=== PATIENT | male | born 1985 | race Caucasian/White ===

== ENCOUNTER 2022-02-25 01:37 | Emergency (ER) | payer SELFPAY ==
[~2022-02-25] VITALS: Ht 177.8 cm; Wt 74.8 kg
--- NOTE | 2022-02-25 01:55 | NUR ---
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 PT A/OX3. TOLERATING R/A WELL WITH NO SOB. PT IS ATTACHED TO POX AND MONITOR, SAFETY MEASURES TAKEN. SITTER AT BEDSIDE.
--- NOTE | 2022-02-25 02:01 | NUR ---
[employer] AT PT'S BEDSIDE
--- NOTE | 2022-02-25 02:13 | NUR ---
RAC #18G S/L BLOOD COLLECTED AND SENT TO LAB. 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
[2022-02-25 02:50] LABS: BASOPHILS % (AUTO) 0.4 % (0.0-2.0); EOSINOPHILS % (AUTO) 2.1 % (0.0-6.0); HEMATOCRIT 48 % (39-51); HEMOGLOBIN 16.1 g/dL (13.5-17.5); LYMPHOCYTES % (AUTO) 32.5 % (20.0-44.0); MEAN CORPUSCULAR HGB CONC 34 g/dl (31.0-36.0); MEAN CORPUSCULAR VOLUME 92 fL (80-96); MONOCYTES # (AUTO) 0.5 K/uL (0.1-1.30); MONOCYTES % (AUTO) 8.6 % (2.0-12.0); NEUTROPHILS # (AUTO) 3.4 K/uL (1.8-8.9); NEUTROPHILS % (AUTO) 56.4 % (43.0-81.0); PLATELET COUNT (AUTO) 259 K/uL (150-450); RED BLOOD CELL COUNT(AUTO) 5.19 MIL/uL (4.5-6.0)
[2022-02-25 03:09] LABS: ALBUMIN 3.5 g/dL (3.4-5.0); BILIRUBIN,DIRECT 0.2 mg/dL (0.0-0.2); BILIRUBIN,TOTAL 0.5 mg/dL (0.2-1.0); CALCIUM, SERUM 8.7 mg/dL (8.5-10.1); CREATININE 1.1 mg/dL (0.6-1.3); POTASSIUM 3.9 mmol/L (3.5-5.1); TOTAL PROTEIN, SERUM 8.4 g/dL (6.4-8.2)
--- NOTE | 2022-02-25 04:25 | NUR ---
PT SATTING 87% ON R/A; RESP EVEN AND NON LABORED. PUT PT ON O2 N/C 3LPM; NOW SATTING AT 94%.
--- NOTE | 2022-02-25 04:54 | NUR ---
Patient discharged to home in stable condition. Written and verbal after care instructions given. Patient verbalizes understanding of instruction. IV removed. Catheter intact and site benign. Pressure and 4x4 applied to site. No bleeding noted. pt ambulatory with a steady gait
--- NOTE | 2022-02-25 04:54 | NUR ---
PT AWAKE. SATTING 98% ON R/A NO RESP DISTRESS.
[2022-02-25 04:55] VITALS: BP 113/91
== END 2022-02-25 04:57 | disposition home or self-care (01) ==
LOC: ER 01:45
DX: T40.411A Poisoning by fentanyl or fentanyl analogs, accidental (unintentional), initial encounter (principal); R94.31 Abnormal electrocardiogram [ECG] [EKG]; Z59.00 Homelessness unspecified; Y92.89 Other specified places as the place of occurrence of the external cause
CPT/HCPCS: 36415; 80048-TC; 80076-TC; 85025-TC; G0480